=== PATIENT | male | born 1965 | race Two or more races ===

== ENCOUNTER 2020-09-27 18:38 | Emergency (ER) | payer OTHER ==
[~2020-09-27] VITALS: Ht 170.2 cm; Wt 64.9 kg
--- NOTE | 2020-09-27 19:05 | NUR ---
PT MAURY FROM DR OFFICE AFTER 2 SYNCOPAL EPISODES. PT AAOX4 BREATHING EVENLY AND UNLABORED. PT SKIN IS WARM, DRY, AND INTACT. PT STATES THAT HE HAD "CHEMO ON FRIDAY AND RADIATION ON FRIDAY, BUT TODAY HE PASSED OUT". PT ATTACHED TO MONITOR AND POX. IV 20G IN LEFT AC INITIATED. BLOOD OBTAINED AND SENT TO LAB. BLANKET AND CALL LIGHT GIVEN. WILL CONTINUE TO MONITOR.
[2020-09-27] MEDS: IV NS 0.9% 1,000 ML BAG IV ONE (19:10)
[2020-09-27] MEDS ORDERED: ONDANSETRON HCL/PF 4 MG/2 ML VIAL ONE (19:11)
[2020-09-27] MEDS: ONDANSETRON HCL/PF - ER 4 MG/2 ML VIAL IV ONE (19:15)
[2020-09-27 19:37] LABS: BASOPHILS % (AUTO) 0.1 % (0.0-2.0); HEMATOCRIT 38 % (39-51); HEMOGLOBIN 13.2 g/dL (13.5-17.5); LYMPHOCYTES # (AUTO) 0.5 /CMM (0.8-4.8); LYMPHOCYTES % (AUTO) 4.2 % (20.0-44.0); MEAN CORPUSCULAR HGB CONC 35 g/dl (31.0-36.0); MEAN CORPUSCULAR VOLUME 88 fL (80-96); MONOCYTES # (AUTO) 0.3 /CMM (0.1-1.30); MONOCYTES % (AUTO) 2.3 % (2.0-12.0); NEUTROPHILS # (AUTO) 10.2 /CMM (1.8-8.9); NEUTROPHILS % (AUTO) 93.4 % (43.0-81.0); PLATELET COUNT (AUTO) 139 /CMM (150-450); RED BLOOD CELL COUNT(AUTO) 4.34 MIL/uL (4.5-6.0)
[2020-09-27 19:45] LABS: CALCIUM, SERUM 9.1 mg/dL (8.5-10.1); CARBON DIOXIDE 28 mmol/L (21-32); CHLORIDE 98 mmol/L (98-107); CREATININE 0.8 mg/dL (0.6-1.3); GLUCOSE 117 mg/dL (74-106); POTASSIUM 3.8 mmol/L (3.5-5.1); SODIUM SERUM 136 mmol/L (136-145); UREA NITROGEN, BLOOD 12 mg/dL (7-18)
[2020-09-27 19:50] LABS: ALANINE AMINOTRANSFERASE 14 U/L (12-78); ALBUMIN 3.3 g/dL (3.4-5.0); ALKALINE PHOSPHATASE 124 U/L (46-116); ASPARTATE AMINOTRANSFERASE 20 U/L (15-37); BILIRUBIN,DIRECT 0.2 mg/dL (0.0-0.2); LIPASE 71 U/L (73-393)
--- NOTE | 2020-09-27 20:05 | NUR ---
PT RESTING COMFORTABLY WITH EYES CLOSED. EASILY AROUSABLE
--- NOTE | 2020-09-27 20:40 | NUR ---
Patient discharged to home in stable condition. Written and verbal after care instructions given. Patient verbalizes understanding of instruction. IV removed. Catheter intact and site benign. Pressure and 4x4 applied to site. No bleeding noted. Pt ambulatory with a steady gait
--- NOTE | 2020-09-27 20:55 | NUR ---
Note varsha in EDM - 09/27/20 at 2056 by DARWIN Patient discharged to home in stable condition. Written and verbal after care instructions given. Patient verbalizes understanding of instruction. IV removed. Catheter intact and site benign. Pressure and 4x4 applied to site. No bleeding noted. Pt ambulatory with a steady gait
[2020-09-27 20:56] VITALS: BP 114/64
== END 2020-09-27 20:40 | disposition home or self-care (01) ==
LOC: ER 18:40
DX: E86.0 Dehydration (principal); R55 Syncope and collapse; R00.0 Tachycardia, unspecified; Z85.01 Personal history of malignant neoplasm of esophagus
CPT/HCPCS: 36415; 71045; 80048; 80076; 83690; 84484; 85025; 93005; 96361; 96374; 99285; J2405; J7030